=== PATIENT | female | born 1975 | race Caucasian/White ===

== ENCOUNTER → 2016-06-04 | Day surgery (SDC) | payer OTHER ==
[~2016-06-04] MED LIST: ATOR20TA15 PO; BUPIVACAINE/EPINEPHRINE 0.25% PF 30 ML VIAL ONE; CYCL1PAK TOPICAL; GABA300C5 PO; KETOROLAC TROMETHAMINE 30 MG/ML (IVP) VIAL IV PUSH ONE; LACTATED RINGER'S 1000 ML INJ 1,000 ML ONE; LINA290C PO; MIDAZOLAM HCL 2 MG/2 ML VIAL ONE; NEOSTIGMINE 3 MG/3 ML SYR IV ONE; NEXI40CA PO; ONDANSETRON HCL 4 MG/2 ML VIAL IV PUSH ONE; PROP60TA PO; PROPOFOL 200 MG/20 ML AMP IV ONE; TOPA50TA7 PO; TRAM50TA PO; ceFAZolin 2 GM PREMIX 50 ML ONE; metroNIDAZOLE 500 MG INJ 100 ML IV ONE
--- NOTE | 2016-06-04 11:58 | TN ---
cc: PONCE JACKSON M.D. DATE OF SURGERY: 06/04/2016 PREOPERATIVE DIAGNOSIS Chronic cholecystitis POSTOPERATIVE DIAGNOSIS Chronic cholecystitis. PROCEDURE PERFORMED Laparoscopic cholecystectomy SURGEON Ponce Jackson MD BOTTLE ASSEMBLER Paco Barajas ARNP. ANESTHESIA General tracheal COMPLICATIONS None. INDICATIONS FOR PROCEDURE: Ms. Oliva is a pleasant 41-year-old female who has had longstanding problems with abdominal pain, nausea and vomiting. She had a very extensive workup. The patient was noted to have of biliary dyskinesia on a HIDA Scan as well as mimicking of symptoms. She was referred for consideration of cholecystectomy. Risks and benefits of open laparoscopic cholecystectomy was discussed with her including the fact that it may or may not alleviate her symptoms. She expressed understanding was willing to proceed. Details the patient was identified, brought to the operating placed supine on the table. After adequate general anesthesia achieved the abdomen was prepped and draped in standard surgical fashion. Infraumbilical space anesthetized core percent Marcaine. Infraumbilical incision made. Dissection was carried down subcutaneous tissues midline fascia. Midline fascia then incised sharply. A finger was then placed in the peritoneal cavity difficulty. Blunt balloon trocar was inserted and was insufflated 15 mmHg using CO2 gas. Next two 5 mm trocars were placed in the right upper quadrant after anesthetizing skin and subcutaneous tissue with 0.25% Marcaine. Attention was directed gallbladder which was noted be mildly distended. Gallbladder was elevated cephalad. The patient did have some omental adhesions on the underside of the gallbladder which were taken down with blunt electrocautery dissection. Gallbladder neck was then identified. Cystic artery and cystic duct were dissected out and clearly visualized in two planes. Once they were confirmed in two planes, they were clipped twice proximally, once distally and divided. Gallbladder was then dissected out hepatic fossa using electrocautery Bovie. Gallbladder was placed in Endopouch bag and brought the infraumbilical port. Gallbladder inspected and clips were placed in the cyst duct stump without evidence of leakage of bile. Gallbladder sent to pathology for analysis. Next the abdominal cavity was revisualized. Liver bed was completely hemostatic. Clips were placed in the cystic artery and cystic duct stump without evidence of leakage of bile or bleeding. 0.25% Marcaine injected operative field. All ports removed under direct vision. Midline fascia was repaired with 0 Vicryl [id number] fashion. Skin was closed with 4-0 Vicryl. The patient tolerated she well, was x-rayed and brought to recovery in stable condition. Please note the presence of the OFFICE HELPER CLERICAL was medically necessary due to her surgical expertise and knowledge of my operative technique. She was present and scrubbed throughout the entirety of the procedure. MD JANETTE Frost/evie /11:48 AM /11:53 AM
== END | disposition home or self-care (01) ==
LOC: ESDC 08:31
PROVIDERS: ATTEND Surgery Trauma Surgery
DX: K81.1 Chronic cholecystitis (principal)
CPT/HCPCS: 00790; 47562; 88304; J0690; J1885; J2250; J2405; J2710; J3010; J7120

== ENCOUNTER → 2016-12-14 | Day surgery (SDC) | payer OTHER ==
[~2016-12-14] VITALS: Ht 165.1 cm; Wt 82.0 kg
[~2016-12-14] MED LIST changes: +ACETAMINOPHEN/HYDROcodone 325 MG/5 MG TAB ONE; +AMPICILLIN/SULBAC 3 GM/NS 100 ML IV PRN; -BUPIVACAINE/EPINEPHRINE 0.25% PF 30 ML VIAL ONE; +CHLORHEXIDINE GLUCONATE 2 % 1 PACK (2 CLOTHS) TOPICAL PRN; +CYCL1TAB29 PO; +FAMOTIDINE 20 MG/2 ML VIAL ONE; +HYDR-3516 PO; +INSULIN HUMAN REGULAR 1,000 UNITS/10 ML VIAL SQ PRN; -KETOROLAC TROMETHAMINE 30 MG/ML (IVP) VIAL IV PUSH ONE; -LACTATED RINGER'S 1000 ML INJ 1,000 ML ONE; +LACTATED RINGER'S 1000 ML IV PRN; +METOPROLOL TARTRATE 25 MG TAB PO PRN; +OXYMETAZOLINE HCL 0.05% 15 ML NASAL SPRAY ONE; +PLEC3TAB PO; +POVIDONE IODINE 5% (ANTISEPSIS KIT) 4 APPLICATIONS EACH NARE PRN; +RIZA10TA2 PO; +SODIUM CHLORID 0.9% 500 ML IV PRN; -ceFAZolin 2 GM PREMIX 50 ML ONE; +fentaNYL CITRATE 250 MCG/5 ML AMP ONE; -metroNIDAZOLE 500 MG INJ 100 ML IV ONE
[2016-12-14] MEDS: LIDOCAINE 1%/EPINEPHrine 1:100,000 SOLN 20 ML VIAL ONE ×2 (06:58→11:21)
[2016-12-14 08:05] VITALS: BP 117/80; PULSE 94; RESP 18; TEMP 98; O2SAT 99
[2016-12-14 12:02] VITALS: PULSE 74
[2016-12-14 12:30] VITALS: PULSE 71; TEMP 98.9
[2016-12-14 15:50] VITALS: BP 113/74; PULSE 78; RESP 14; O2SAT 100
--- NOTE | 2016-12-15 21:16 | MP ---
cc: TOMY PAINTER MD DATE OF SURGERY 12/14/[address] Sylvain painter PREOPERATIVE DIAGNOSIS Chronic pansinusitis. POSTOPERATIVE DIAGNOSIS Chronic pansinusitis. OPERATION PERFORMED 1. Bilateral endoscopic exploration of frontal sinus duct with balloon dilation 2. Bilateral maxillary antrostomy with removal of maxillary sinus tissue 3. Bilateral endoscopic total ethmoidectomy 4. Bilateral endoscopic sphenoidotomy. INDICATIONS Heidi Oliva is a 41-year-old woman who underwent her initial endoscopic sinus surgery several months ago. This was successful for a short while, but then she soon after developed chronic foul odor in her nose and foul drainage which normally resolved with antibiotic therapy but then quickly recurred. Repeat CT scan shows partial opacification of her maxillary sinuses with extension into the frontal ducts and the anterior ethmoids. Scan reveals very small openings into the maxillary sinuses and partial obstruction of the frontal duct. PROCEDURE IN DETAIL The patient was taken to OR #2 and placed in the supine position. Following induction of general anesthesia and intubation, the nose was packed bilaterally with cotton pledgets saturated in 0.05% Oxymetazoline. These remained in place for a period of 5 minutes. They were then removed and nose examined endoscopically. There was inspissated purulent secretions draining from the lateral nasal wall bilaterally. The left side was addressed first beginning with the balloon dilation technique in the frontal sinuses. The guidewire was advanced into the frontal duct and the balloon was then advanced over the wire. The balloon was inflated to a pressure of 12 atmospheres at three different levels at the superior most end of the duct. The mid point and also inferiorly were the duct joints to the ethmoid sinuses. Was then removed and was repeated on the right side and was inflated to three different levels to a pressure of 12 atmospheres. On both sides, the duct was verified patent using a 70 degree scope and a curved suction. The ethmoids were addressed next. These were bluntly penetrated and debrided of inflamed tissue. There was no purulence within the ethmoid cavities. This was completed bilaterally. Next, the maxillaries were addressed on the left side. The surgical ostia had become very constricted down to only a few millimeters. The balloon guidewire was then advanced through this opening and the balloon advanced over the wire. It was inflated to a pressure of 12 atmospheres with its mid point in the maxillary ostium and then withdrawn while inflated from the ostium. The ostium was then enlarged with Stammberger forceps and the cavity was debrided using suction irrigation and the Blakesley forceps. The right side was operated in the same fashion. On this side, an additional ostium was created using blunt penetration with a 3-mm ___ tip suction and then this ostium was enlarged with Stammberger forceps and the power microdebrider. The cavity was then irrigated and flushed of purulent material. Lastly, the sphenoid sinuses were dilated using the balloon technique. Guidewire was advanced into the ostium and balloon advanced over the wire and inflated while in the ostium to a pressure of 12 atmospheres. These were verified patent bilaterally using the 0 degree scope. The balloon was then removed and all sinuses were irrigated with chilled saline. On the right side, the superior vault and ethmoid sinuses were packed with a few cotton pledgets saturated in Oxymetazoline. Both sides then packed inferiorly with 5.5 cm rapid rhino pack which was inflated with 5 mL of air. These packs were later removed while in recovery prior to the patient's departure. Procedure was then terminated. The patient was reversed from anesthesia and taken to recovery in good condition. There were no complications. Blood loss was 60 mL. MD JEANNETTE Camara/ /2:58 PM /8:59 PM
== END | disposition home or self-care (01) ==
LOC: PHSDC 07:14
PROVIDERS: ATTEND Otolaryngology
DX: J32.4 Chronic pansinusitis (principal); E78.00 Pure hypercholesterolemia, unspecified; K21.9 Gastro-esophageal reflux disease without esophagitis; Z87.891 Personal history of nicotine dependence
CPT/HCPCS: 00160; 31255; 31267; 31276; 31287; J0295; J2250; J2405; J2710; J3010; J7120